=== PATIENT | female | born 1955 | race African-American/Black ===

== ENCOUNTER → 2016-06-19 | Outpatient (CLI) | payer MEDICARE, OTHER ==
--- NOTE | 2016-06-19 14:47 | Diagnostic Imaging Report ---
Indication: Postmenopausal pelvic pain Technique: Transabdominal and transvaginal images Comparison: None Findings: Uterus measures 7 cm length by 2.9 cm AP. Endometrium measures 6 mm thick. Calcifications are seen in the upper portion of the fundus. Tiny cysts are seen in the cervix, uncertain as whether within or adjacent to the endocervical canal. Right ovary measures 2.4 cm length. Left ovary measures 3.9 cm length. No adnexal mass demonstrated. No free pelvic fluid. Impression: No findings to explain stated clinical history of pelvic pain 6 mm thick endometrium Nonspecific tiny cystic structures within or adjacent to the endocervical canal Normal ovaries
--- NOTE | 2016-06-21 10:59 | Diagnostic Imaging Report ---
Indication: SCREEN Technique: Bilateral Craniocaudal and mediolateral oblique views were obtained. Comparison: 07/16/2014, 08/11/2012 Findings: The breasts demonstrate scattered fibroglandular densities. No parenchymal asymmetry nor architectural distortion. There are benign calcifications bilaterally. No dominant masses nor suspicious clustered microcalcifications. No skin thickening nor nipple retraction. No axillary adenopathy. No significant interim change. Impression: No mammographic evidence of malignancy. Routine annual rescreening recommended. BI-RADS category 2-benign. Breast density BI-RADS type B.
== END | disposition home or self-care (01) ==
LOC: MAMMO 12:39
DX: Z12.31 Encounter for screening mammogram for malignant neoplasm of breast (principal); R10.2 Pelvic and perineal pain
CPT/HCPCS: 76830; 76856; 77067